=== PATIENT | female | born 1970 | race American Indian/Alaskan Native ===

== ENCOUNTER 2021-09-27 13:59 | Outpatient (CLI) | payer BC | END 2021-09-27 14:00 | disposition home or self-care (01) | LOC: MAMMO 13:59 | DX: Z12.31 Encounter for screening mammogram for malignant neoplasm of breast (principal) | CPT/HCPCS: 77067 ==

== ENCOUNTER 2021-12-11 09:34 | Emergency (ER) | payer OTHER, BC ==
[2021-12-11 09:55] VITALS: BP 116/84
--- NOTE | 2021-12-11 09:58 | Emergency Department Report ---
ED Back Pain/Injury HPI - General Chief Complaint: Back Pain/Injury Stated Complaint: BACK PAIN Time Seen by Provider: 12/11/21 09:46 Source: patient Limitations: No Limitations - History of Present Illness Initial Comments: Patient is 51 years old female with no significant past medical history. Patient presented to the ER with acute onset of lower back pain that radiated down to her right leg. 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 Patient denies any bowel or bladder incontinence. She also denied any weakness, numbness or tingling sensation. No recent weight loss or fever. MD Complaint: back pain, back injury -: Sudden, This morning Place: work Radiation: right leg Severity scale (0 -10): 7 Quality: sharp Consistency: intermittent Improves With: immobilization Worsens With: movement Context: while lifting Associated Symptoms: denies other symptoms - Related Data Home Medications Medication Instructions Recorded Confirmed Last Taken No Known Home Medications [No 12/11/21 12/11/21 Unknown Reported Home Medications] Allergies Allergy/AdvReac Type Severity Reaction Status Date / Time moxifloxacin AdvReac Anaphylaxis Verified 12/11/21 09:54 ED Review of Systems ROS: Stated complaint: BACK PAIN Other details as noted in HPI Comment: All other systems reviewed and negative Constitutional: denies: chills, fever Respiratory: denies: cough, shortness of breath Cardiovascular: denies: chest pain, palpitations, dyspnea on exertion Gastrointestinal: denies: abdominal pain, nausea, vomiting Musculoskeletal: back pain Neurological: denies: headache, weakness ED Past Medical Hx - Medications Home Medications: Home Medications Medication Instructions Recorded Confirmed Last Taken Type No Known Home Medications [No 12/11/21 12/11/21 Unknown History Reported Home Medications] ED Physical Exam - General Limitations: No Limitations General appearance: alert, in distress (pain) - Head Head exam: Present: atraumatic, normocephalic, normal inspection - Eye Eye exam: Present: normal appearance - ENT ENT exam: Present: normal exam, normal orophraynx, mucous membranes moist - Neck Neck exam: Present: normal inspection, full ROM. Absent: tenderness, meningismus - Respiratory Respiratory exam: Present: normal lung sounds bilaterally - Cardiovascular Cardiovascular Exam: Present: regular rate, normal rhythm, normal heart sounds - GI/Abdominal GI/Abdominal exam: Present: soft, normal bowel sounds. Absent: distended, tenderness, guarding, rebound, rigid, organomegaly, mass, bruit, pulsatile mass, hernia - Extremities Exam Extremities exam: Present: normal inspection, full ROM, normal capillary refill. Absent: tenderness - Back Exam Back exam: Present: normal inspection, full ROM. Absent: CVA tenderness (R), CVA tenderness (L) - Neurological Exam Neurological exam: Present: alert, oriented X3, CN II-XII intact, reflexes normal. Absent: motor sensory deficit - Psychiatric Psychiatric exam: Present: normal mood - Skin Skin exam: Present: warm, intact, normal color ED Course Vital Signs 12/11/21 09:54 Pulse Rate 84 Respiratory 18 Rate Blood Pressure 116/84 [Right] O2 Sat by Pulse 98 Oximetry ED Medical Decision Making - Radiology Data Radiology results: report reviewed - Medical Decision Making Patient is 51 years old female with no significant past medical history. Patient presented to the ER with acute onset of lower back pain that radiated down to her right leg. 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 Patient denies any bowel or bladder incontinence. She also denied any weakness, numbness or tingling sensation. No recent weight loss or fever. Patient received morphine, Zofran. Patient stated that she is feeling much better. CT lumbar spine is unremarkable. Patient given prescription for prednisone, tramadol and Zofran and advised to follow-up with her primary doctor in the next 2 to 3 days and to return to the ER if she develop any symptoms. Critical care attestation.: If time is entered above; I have spent that time in minutes in the direct care of this critically ill patient, excluding procedure time. ED Disposition Clinical Impression: Acute back pain Disposition: HOME / SELF CARE / HOMELESS Is pt being admited?: No Condition: Stable Instructions: Radicular Pain, Acute Back Pain, Adult Referrals: PRIMARY CARE,MD [Primary Care Provider] - 3-5 Days Forms: Work/School Release Form(ED)
[2021-12-11] MEDS ORDERED: MORPHINE 4 MG/1 ML INJ IV SCH (10:00)
[2021-12-11] MEDS ORDERED: ONDANSETRON 4 MG/2 ML INJ IV SCH (10:00)
--- NOTE | 2021-12-11 11:47 | Cat Scan Report ---
CT LUMBAR SPINE WITHOUT CONTRAST HISTORY: Acute back injury COMPARISON: None TECHNIQUE: CT images of the lumbar spine were obtained without contrast. Sagittal and coronal reform ats were post-processed.All CT scans at this location are performed using CT dose reduction for ALARA by means of automated exposure control. CONTRAST: None. FINDINGS: Alignment: Normal. No traumatic subluxation. Vertebrae:No significant abnormality. No fracture. Disc Spaces: No significant abnormality allowing for lack of intrathecal contrast. Facet Joints:Mild facet joint hypertrophic changes on the right side at L4-L5 disc level and at L5-S1 disc level more on the left Additional Findings: None IMPRESSION: 1. No significant abnormality. Signer Name: Siobhan Vickers MD Signed: 12/11/2021 10:37 AM Workstation Name: [id number]
== END 2021-12-11 12:52 | disposition home or self-care (01) ==
LOC: ED 09:34
DX: M54.50 Low back pain, unspecified (principal)
CPT/HCPCS: 72131; 96374; 96375; 99283; J2270; J2405